=== PATIENT | female | born 1945 | race Caucasian/White ===

== ENCOUNTER → 2018-04-13 | Outpatient (CLI) | payer MEDICARE ==
--- NOTE | 2018-04-13 11:20 | Diagnostic Imaging Report ---
MRI BRAIN WO HISTORY: Seizure, hit head, "blacking out" COMPARISON: None. TECHNIQUE: Sagittal T2, axial T2, axial T1, axial T2/FLAIR, axial gradient echo (or susceptibility weighted), coronal T2/T2/FLAIR, and axial diffusion weighted MR images of the brain were obtained without contrast. DISCUSSION: Scalp/bone marrow: Unremarkable. Brain sulci: Mildly prominent. Ventricles: Mild compensatory dilatation. Extra-axial spaces: No masses or fluid collections. Parenchyma: Scattered T2/FLAIR hyperintense foci throughout the supratentorial white matter are likely chronic microvascular ischemic changes. Otherwise, no mass, hemorrhage, or acute vascular insults. The hippocampal structures, fornices, and mamillary bodies are grossly unremarkable. Vessels: Normal flow voids in major arteries and veins. Sellar/Suprasellar region: No abnormalities. Craniocervical junction: Mild to moderate disc degeneration is seen in the upper cervical spine. Incidental findings: There is mild T2 hyperintense mucosal thickening in the right sphenoid sinus. IMPRESSION: 1. No acute intracranial abnormalities. 2. Mild supratentorial chronic microvascular ischemic change. Mild generalized cerebral volume loss. Signed by: Dr. Richard Sutton M.D. on 04/13/2018 11:17 AM
--- NOTE | 2018-04-20 18:28 | Electroencephalogram ---
DATE OF STUDY: April 13, 2018 REQUESTING PHYSICIAN: Dr. Aylin Ackerman. PATIENT HISTORY: This 72-year-old woman with a history of a possible seizure is having an EEG for evaluation of epileptiform activity. The patient is not taking any medications that might affect the EEG. TECHNIQUE: This is a routine, portable EEG, recorded digitally using the International 10-20 Electrode Placement System and done in the laboratory with the patient awake. The EEG is adequate for interpretation. DESCRIPTION: Well-organized, well-sustained, 9-10 Hz activity is best seen symmetrically over the posterior head regions. No focal or epileptiform activity is recorded. Sleep is not recorded. Photic stimulation does produce a driving response. Hyperventilation does not produce a slowing response. INTERPRETATION: This EEG is normal with the patient awake. No epileptiform discharges are seen. Job#: [id number]
== END ==
LOC: MRI 09:50
PROVIDERS: ATTEND Psychiatry & Neurology Clinical Neurophysiology
DX: G40.89 Other seizures (principal)
CPT/HCPCS: 70551; 95812

== ENCOUNTER 2021-02-09 15:16 | Emergency (ER) | payer MEDICARE ==
[~2021-02-09] VITALS: Ht 162.6 cm; Wt 54.9 kg
[2021-02-09] MEDS ORDERED: CASIRIVIMAB/IMDEVIMAB 10 ML in SODIUM CHLORIDE 0.9% 100 ML IV ONE (15:30)
== END 2021-02-09 16:33 | disposition home or self-care (01) ==
LOC: ER 15:25
DX: U07.1 COVID-19 (principal); R50.9 Fever, unspecified; I10 Essential (primary) hypertension; R51.9 Headache, unspecified; R53.83 Other fatigue
CPT/HCPCS: 99283; J7050

== ENCOUNTER → 2022-01-29 | Outpatient (CLI) | payer MEDICARE | LOC: US 11:59 | PROVIDERS: ATTEND Family Medicine | DX: E04.2 Nontoxic multinodular goiter (principal) | CPT/HCPCS: 10005; 88172; 88173; 88304; 88305 ==